=== PATIENT | male | born 1950 | race Caucasian/White ===

== ENCOUNTER 2017-01-28 02:39 | Emergency (ER) | payer BC, OTHER ==
[~2017-01-28] VITALS: Ht 175.3 cm; Wt 102.2 kg
[2017-01-28] MEDS ORDERED: NS 1,000 ML IV ONE ×2 (03:00→04:15)
[2017-01-28] MEDS ORDERED: MORPHINE 10 MG/ML 1ML VIAL IV ONE (03:00)
[2017-01-28] MEDS ORDERED: KETOROLAC 30 MG/ML VIAL (J1885) IV ONE (03:00)
[2017-01-28] MEDS ORDERED: METOCLOPRAMIDE INJ 10MG/2ML VIAL (J2765) IV ONE (03:15)
[2017-01-28 03:24] LABS: BASO % 0.2 % (0.0-1.0); EOS # 0.3 K/mm3 (0.0-0.50); EOS % 2.7 % (0.0-3.0); LARGE UNSTAINED CELL # 0.1 K/mm3 (0.0-0.4); LARGE UNSTAINED CELL % 0.9 % (0.0-4.0); LYMPH # 1.5 K/mm3 (1.5-4.5); LYMPH % 13.3 % (24.0-44.0); MEAN CORPUSCULAR HEMOGLOBIN 30.7 pg (27.0-33.0); MEAN CORPUSCULAR HGB CONC 32.9 g/dl (32.0-36.5); MEAN CORPUSCULAR VOLUME 93.4 fl (80.0-96.0); MONO # 0.5 K/mm3 (0.0-0.8); MONO % 4.7 % (0.0-5.0); NEUTROPHILS # 8.3 K/mm3 (1.8-7.7); NEUTROPHILS % 78.2 % (36.0-66.0); PLATELET COUNT, AUTOMATED 175 k/mm3 (150-450); RED CELL DISTRIBUTION WIDTH 13.2 % (11.5-14.5); WHITE BLOOD COUNT 10.6 K/mm3 (4.0-10.0)
[2017-01-28 03:32] LABS: ALBUMIN 4.1 GM/DL (3.2-5.2); ALBUMIN/GLOBULIN RATIO 1.21 (1.00-1.93); ALKALINE PHOSPHATASE 92 U/L (45-117); ALT/SGPT 34 U/L (12-78); AMYLASE 41 U/L (25-115); ANION GAP 8 MEQ/L (8-16); AST/SGOT 21 U/L (15-37); BILIRUBIN,DIRECT < 0.1 MG/DL (0.0-0.2); BILIRUBIN,TOTAL 0.3 MG/DL (0.2-1.0); BLOOD UREA NITROGEN 25 MG/DL (7-18); CALCIUM LEVEL 8.8 MG/DL (8.8-10.2); CARBON DIOXIDE LEVEL 26 MEQ/L (21-32); CHLORIDE LEVEL 103 MEQ/L (98-107); GLOMERULAR FILTRATION RATE 59.2 (>49); GLUCOSE, FASTING 138 MG/DL (80-110); POTASSIUM SERUM 3.9 MEQ/L (3.5-5.1); SODIUM LEVEL 137 MEQ/L (136-145); TOTAL PROTEIN 7.5 GM/DL (6.4-8.2)
--- NOTE | 2017-01-28 04:10 | REPUSA ---
CLINICAL HISTORY: Abdominal pain. TECHNIQUE: Multiple axial, sagittal and coronal CT images were obtained through the abdomen and pelvi s without administration of oral or IV contrast material. COMMENTS: 4.5 mm obstructing stone of the left ureter at the S2 level. Mild left hydroureteronephrosis. Sigmoid diverticulosis. Minimal surrounding fat thickening which can be a chronic finding. The differ ential diagnoses includes minimal acute diverticulitis. Moderate prostatomegaly. Mild diffuse thickening of the wall of the bladder. 4.6 cm cyst in the lower pole of the left kidney. Scattered simple hepatic cysts the largest measuring 1.3 cm. The remaining liver is of uniform attenuation without mass or defect. There is no intra or extrahepat ic biliary ductal dilatation. The spleen is normal. The gallbladder is within normal limits. The panc reas is of normal contour and attenuation characteristics. There is no evidence of adrenal mass. There is no evidence for appendicitis. No evidence for small or large bowel obstruction. There is no evidence of abdominal ascites or lymphadenopathy. There is no evidence of intrinsic or extrinsic bladder mass. There is no pelvic ascites or lymphadeno airam. Images of the lung bases show no evidence of pleural or parenchymal mass. There are no pleural effusi ons. The bony structures are free of lytic or blastic lesions. Multilevel degenerative changes are seen in volving the thoracolumbar spine. Scattered calcifications are seen involving the aorta and major branches compatible with atherosclero sis. IMPRESSION: Obstructing stone of the left ureter. Left renal cyst. Prostatomegaly. Thickened bladder. Mild perisigmoid fat thickening. Thank you for your kind referral of this patient.
[2017-01-28] MEDS ORDERED: TAMSULOSIN 0.4 MG CAP PO ONE (04:15)
[2017-01-28] MEDS ORDERED: RAPA8CAP PO (05:26)
[2017-01-28] MEDS ORDERED: NORCO 5/325MG TABLET (BULK FOR ED) PO ONE (05:30)
[2017-01-28 05:37] VITALS: BP 154/82
== END 2017-01-28 05:39 | disposition home or self-care (01) ==
LOC: M ED 02:39
DX: N20.1 Calculus of ureter (principal); I10 Essential (primary) hypertension; R11.0 Nausea; Z87.442 Personal history of urinary calculi
CPT/HCPCS: 36415; 74176; 80048; 80076; 82150; 83690; 85025; 96361; 96374; 96375; 99283; J1885; J2765